=== PATIENT | male | born 1965 | race Caucasian/White ===

== ENCOUNTER 2021-04-27 13:40 | Inpatient (IN) | payer OTHER ==
[~2021-04-27] VITALS: Ht 180.3 cm; Wt 86.2 kg
--- NOTE | ~2021-04-27 | PROC ---
[address] [address] PROCEDURE REPORT Name: KATYA MORIN Room: [address] IN M.R.#: [id number] Admission: 04/27/21 Attend Phys: Jayy Ding Discharge: Date of : 67 Report #: [id number] THIS REPORT FOR: cc: Yehuda Culp MD, Matthew D MD [facility],Medical Records Staff ~ For GI report, please see the Provation report in Perceptive 7 content. By: 0655Medical Records Staff [facility] /BRITTNY
--- NOTE | ~2021-04-27 | CON ---
[address] [address] CONSULTATION Name: KATYA MORIN Room: [address] IN M.R.#: [id number] Admission: 04/27/21 Attend Phys: Jayy Ding Discharge: Date of : 67 Report #: [id number] THIS REPORT FOR: cc: Yehuda Culp MD, Matthew D MD Namin, Farid M. MD ~ cc: Yehuda Culp DATE OF CONSULTATION: 04/28/2021 Please note at the time of this dictation, the patient was seen and physically examined by myself. REASON FOR CONSULTATION: Abdominal pain, nausea and vomiting for 3 weeks along with melanotic stool. HISTORY OF PRESENT ILLNESS: This is a 55-year-old male who presented to the Emergency Room with ongoing abdominal pain, which has progressively gotten worse including nausea and vomiting for the last 3 weeks. He states he has noted black stools about 3 weeks ago and they seem to have got a little bit better and then progressively got worse again. He also has some issues with diffuse burning and every time he has any oral intake, he cannot keep anything down and he vomits things up. The patient does have a history of ulcers in the past. He did undergo an EGD back in 2012 in which, he was noted to have gastric and duodenal ulcers at that time. The patient tells me he had a colonoscopy at that time, but he did not. In looking at the dictation note, he had had a previous colonoscopy 4 years prior and all that was noted was anal fissures. The patient denies taking any NSAIDs at this time or any other nonsteroidal or Excedrin or aspirin on a daily basis. ALLERGIES: PENICILLIN AND LATEX. MEDICATIONS FROM HOME: Include Carafate, metoprolol, Protonix and Lenore. PAST MEDICAL HISTORY: History of gastric and duodenal ulcers, seizure disorder, history of stents in the past, history of pericarditis and hernia. PAST SURGICAL HISTORY: Back surgery, umbilical hernia, tonsillectomy, shoulder reconstruction, appendectomy. He has had pericarditis x 2 along with stent placement. FAMILY HISTORY: Negative for any GI or female cancers. SOCIAL HISTORY: Denies any alcohol, tobacco [place] [address] CONSULTATION Name: KATYA MORIN Room: [address]#: [id number] Admission: 04/27/21 Attend Phys: Jayy Ding Discharge: Date of : 67 Report #: [id number] REVIEW OF SYSTEMS: Twelve-point review of systems is essentially negative except what is mentioned in the HPI. PHYSICAL EXAMINATION: VITAL SIGNS: Temperature 36.6, pulse 97, respirations 14, blood pressure 154/66. HEART: Regular rate and rhythm. LUNGS: Diminished, but clear. ABDOMEN: Soft. Positive bowel sounds in all 4 quadrants with some tenderness noted in the upper quadrants. LABORATORY DATA: Hemoglobin back in 2012 was as high as 14.3, he is currently 8.7. White count is 8.8, platelets are 682. ESR is 102. CRP is 58.3. B12 of 1199. Iron 47, sat is 11. His GFR is 88. CT shows bilateral nonobstructing renal stones. Distal esophagus and stomach were normal. Sigmoid diverticulosis, multiple clustered slightly more prominent retroperitoneal lymph nodes with the right just periaortic nodes and aortocaval lymph nodes measuring up to 11-12 mm in the short axis otherwise, negative. IMPRESSION: 1. Melanotic stool past 3 weeks. 2. Abdominal pain. 3. Acute anemia. 4. Abnormal CT. PLAN: 1. EGD today with Dr. Tuttle. 2. Continuous Protonix drip. 3. Further recommendations to be made after the procedure has been performed. Thank you for allowing us to participate in this patient's care. Please do not hesitate to call with any questions in regard to this consult. By: 1122 [id number] Tuttle MD /oskar
[~2021-04-27 13:40] MED LIST: ADULT LOW DOSE81 MG; CARAFATE 1 GM TA1 G1 PO; DEPAKOTE ER500 MG PO; HYDROCHLOROTH12.5 MG; HYDROCODONE-AP1 EAC6 PO; LASIX 40 MG TAB40 M1 PO; LOPRESSOR25 PO; NEURONTIN 300300 M1; NIASPAN ER 101000 M1; NICOTINE TRANSD14 M1 TD; NOHOMEMEDICATIONS; POTASSIUM20 PO; PROTONIX40 M2 PO; TOPROL XL50 MG; ZOCOR 20 MG TAB20 M1
[2021-04-27 13:46] VITALS: BP 176/78
[2021-04-27 14:40] LABS: ABSOLUTE EOSINOPHILS 0.1 thou/uL (0.0-0.7); ABSOLUTE LYMPHOCYTES 1.2 thou/uL (0.8-5.3); ABSOLUTE MONOCYTES 0.7 thou/uL (0.0-1.2); ABSOLUTE NEUTROPHILS 6.7 thou/uL (1.6-8.1); BASOPHILS 0.3 %; EOSINOPHILS 0.6 %; HEMATOCRIT 27.4 % (42.0-52.0); HEMOGLOBIN 8.7 gm/dL (14.0-18.0); LYMPHOCYTES 14.1 %; MCH 31.4 pg (26.0-34.0); MCHC 31.6 g/dL (28.0-37.0); MCV 99.3 fL (80.0-100.0); MONOCYTES 8.3 %; MPV 6.5 fl. (7.2-11.1); NUCLEATED RBCS 0 /100WBC; PLATELET COUNT* 685 thou/uL (150-400); POLYS 76.7 %; RBC 2.76 mil/uL (4.50-6.00); WBC 8.8 thou/uL (4.0-11.0)
[2021-04-27 14:52] LABS: CALCIUM 8.4 mg/dL (8.5-10.1); CREATININE 0.9 mg/dL (0.6-1.3)
[2021-04-27 14:56] LABS: ALBUMIN 3.2 g/dL (3.4-5.0); TOTAL BILIRUBIN 0.2 mg/dL (<0.1-1.0); TOTAL PROTEIN 7.1 g/dL (6.4-8.2)
--- NOTE | 2021-04-27 15:33 | EKG ---
[place] [address] ELECTROCARDIOGRAM REPORT Name: KATYA MORIN Room: [facility]#: [id number] Admission: 04/27/21 Attend Phys: Discharge: Date of : 67 Date of Service: 04/27/21 1506 Report #: [id number] THIS REPORT FOR: //name// [facility] ED Test Date: 2021-04-27 Test Time: 15:06:04 Pat Name: KATYA MORIN Department: Room: Gender: Lab Manager: GANESH : 1965 Requested By: Travis Fonseca Order Number: [id number] MD: Romeo Becker Measurements Intervals [place] Rate: 79 P: 47 WV: 163 QRS: -3 QRSD: 97 T: 29 QT: 404 QTc: 464 Interpretive Statements Sinus rhythm RSR' in V1 or V2, right VCD or RVH Compared to ECG 01/21/2013 13:29:05 no change Electronically Signed On 04-27-2021 15:32:45 [facility] SOLUTION ARCHITECT by Romeo Becker [email or web address] <ELECTRONICALLY SIGNED> By: Romeo Becker MD, FAC 04/27/21 1532 1506 1506 Romeo Becker MD, [facility] /EPI
[2021-04-27 17:34] LABS: % SATURATION 11 % (20-39); IRON 47 ug/dL (50-175)
[2021-04-27 19:20] VITALS: BP 113/51
[2021-04-27 21:47] LABS: URINE BILIRUBIN NEGATIVE (Negative); URINE BLOOD NEGATIVE (Negative); URINE CLARITY CLEAR; URINE COLOR YELLOW; URINE GLUCOSE-RANDOM NEGATIVE (Negative); URINE KETONES NEGATIVE (Negative); URINE LEUKOCYTES NEGATIVE (Negative); URINE NITRITE NEGATIVE (Negative); URINE PROTEIN NEGATIVE (Negative); URINE UROBILINOGEN 0.2 E.U./dl (0.2-1.0)
[2021-04-27 23:20] VITALS: BP 148/62
[2021-04-28] VITALS (7 sets, daily range): BP systolic 149–179; BP diastolic 52–98
--- NOTE | 2021-04-28 10:53 | NUR ---
REPORT TO JS CARVALHO. ASSUMES CARE.
[2021-04-28 13:17] LABS: HEMATOCRIT 26.7 % (42.0-52.0); HEMOGLOBIN 8.6 gm/dL (14.0-18.0); MCHC 32.3 g/dL (28.0-37.0); MCV 99.2 fL (80.0-100.0); MPV 6.4 fl. (7.2-11.1); RBC 2.69 mil/uL (4.50-6.00); RDW-CV 14.5 % (10.5-14.5); WBC 10.1 thou/uL (4.0-11.0)
[2021-04-28 13:57] LABS: ALBUMIN 3.1 g/dL (3.4-5.0); CALCIUM 8.4 mg/dL (8.5-10.1); CREATININE 0.8 mg/dL (0.6-1.3); POTASSIUM 4.4 mmol/L (3.5-5.1); TOTAL BILIRUBIN 0.3 mg/dL (<0.1-1.0); TOTAL PROTEIN 7.3 g/dL (6.4-8.2)
[2021-04-28] MEDS ORDERED: KEPPRA XR500 MG PO (15:57)
[2021-04-28] MEDS ORDERED: CARVEDILOL25 MG PO (15:58)
[2021-04-28] MEDS ORDERED: ASPIRIN EC81 M1 PO (15:58)
[2021-04-28] MEDS ORDERED: PEPCID40 MG PO (15:59)
[2021-04-28] MEDS ORDERED: FLEXERIL PO (16:00)
[2021-04-28] MEDS ORDERED: NEURONTIN100 MG PO (16:00)
[2021-04-28] MEDS ORDERED: CRESTOR10 MG PO (16:01)
[2021-04-28] MEDS ORDERED: TRIGLIDE160 MG PO (16:01)
[2021-04-28] MEDS ORDERED: NORVASC10 MG PO (16:02)
[2021-04-28] MEDS ORDERED: LOVAZA1000 MG PO (16:02)
[2021-04-28] MEDS ORDERED: HYZAAR 100-12.1 EACH PO (16:03)
[2021-04-28] MEDS ORDERED: FISH OIL 1,001000 M3 PO (16:05)
[2021-04-28] MEDS ORDERED: FLAX SEED OIL1 EACH PO (16:06)
[2021-04-28] MEDS ORDERED: VITAMIN B-121000 MC2 SUBLING ×2 (16:07→16:08)
[2021-04-28] MEDS ORDERED: COENZYME Q-1030 MG PO (16:07)
[2021-04-28] MEDS ORDERED: VITAMIN D3125 MC1 PO (16:09)
[2021-04-28] MEDS ORDERED: COLLAGEN PLUS1 EACH PO (16:10)
--- NOTE | 2021-04-28 18:44 | NUR ---
PT ARRIVED TO UNIT VIA BED AT 1723- REPORT RECIEVED AT BED SIDE PER JAYSON RN- PT A&O X4- CONT OF BOWEL AND BLADDER- UP AD-CONNOR IN ROOM, STEADY GAIT NOTED- RIOR ASSESSMENT REVIEWED AND THIS NURSE AGREES- PT DENIES PAIN AT TIME- EGDN COMPLETED THIS SHIFT WITH RESULTS NOTED IN [facility] [employer]- HEMO/ONCOLOGY CONSULT CALLED ORDERED UPON ARRIVING TO THIS UNIT- IV NOTED TO RIGHT AC INTACT, IVF INFUSSING PRESCIBED- BP NOTED TO BE ELEVATED AT 172/72, JAYSON REPORS TO HAVE NOTIFIED TO REVIEW UPDAED HOME LIST FOR MEDS TO BE STARTED AFTER BEING RECONCILED- NORVASC GIVEN PRESCRIBED- CALL LIGHT AND PERSONAL BELONGINGS WITH IN REACH- ALL NEEDS MET AT THIS TIME
[2021-04-29 02:16] VITALS: BP 150/62
[2021-04-29 06:25] VITALS: BP 122/65
[2021-04-29 08:00] VITALS: BP 151/52
--- NOTE | 2021-04-29 08:37 | NUR ---
PT IS ABLE TO COMMUNICATE HIS NEEDS TO STAFF EFFECTIVELY. CURRENT PAIN MEDICATION REGIMEN HAS BEEN ADEQUATE FOR CONTROLLING HIS PAIN UP TO 0700 THIS MORNING. GI AND HEME/ONC FOLLOWING.
[2021-04-29 12:00] VITALS: BP 151/68
--- NOTE | 2021-04-29 12:53 | NUR ---
pt admitted for GI Bleed, Anemia. Pt lives at home with and children. Pt is independent with care. pt has no DMEs. Pt has past hx with hh, pt doesnt recall since so long ago. pt denies hx with snf. POC is to continously advance pt's diet slowly. there are no anticipate cm d/c needs at this time.
[2021-04-29 16:00] VITALS: BP 151/63
[2021-04-29 20:00] VITALS: BP 164/66
[2021-04-30] VITALS: BP 153/58
[2021-04-30 04:00] VITALS: BP 148/57
[2021-04-30 04:34] LABS: HEMATOCRIT 26.9 % (42.0-52.0); HEMOGLOBIN 8.7 gm/dL (14.0-18.0); MCH 32.2 pg (26.0-34.0); MCHC 32.5 g/dL (28.0-37.0); MCV 99.1 fL (80.0-100.0); MPV 6.6 fl. (7.2-11.1); RBC 2.72 mil/uL (4.50-6.00); RDW-CV 14.8 % (10.5-14.5); WBC 8.2 thou/uL (4.0-11.0)
[2021-04-30 05:01] LABS: ALBUMIN 3.1 g/dL (3.4-5.0); CALCIUM 8.7 mg/dL (8.5-10.1); CREATININE 0.7 mg/dL (0.6-1.3); POTASSIUM 3.8 mmol/L (3.5-5.1); TOTAL BILIRUBIN 0.3 mg/dL (<0.1-1.0); TOTAL PROTEIN 7.5 g/dL (6.4-8.2)
--- NOTE | 2021-04-30 05:15 | NUR ---
AWAKE ALL NIGHT WITH ABD PAIN. SITTING ON EDGE OF BED ROCKING, AMBULATED IN HALLWAY AND ATTEMPTED TO WATCH TV. IV AND PO PAIN MED GIVEN WITHOUT EFFECT. TELEMETRY ON SHOWING SR.
[2021-04-30 08:00] VITALS: BP 172/67
[2021-04-30] MEDS ORDERED: NEXIUM40 MG PO (10:56)
[2021-04-30] MEDS ORDERED: CARAFATE 1 GM TA1 G1 PO (10:56)
[2021-04-30 12:08] VITALS: BP 141/63
[2021-04-30 13:00] VITALS: BP 141/63
--- NOTE | 2021-04-30 13:32 | NUR ---
ASSUMED PT CARE AT 0730, PT AOX4, C/O ABD PAIN TREATED W/ PRN PAIN MEDS. DC ORDERS RECEIVED. IVS AND PUNCH MOLDER REMOVED. PT DC'D BY WC W/ NURSING STAFF AND ALL PAPERWORK AND PERSONAL BELONGINGS TO 'S VEHICLE AT APPROX 1330
[2021-04-30 13:37] VITALS: BP 141/63
--- NOTE | 2021-05-03 16:06 | PATH ---
[place] [address] PATHOLOGY RPT PROCEDURE Name: OCTAVIO JERONIMO Room: [address] IN .R#: [id number] Admission: 04/27/21 Date of : 67 Discharge: 04/30/21 Report #: [id number] Path Case #: [id number] [facility] Accession Number: [id number] . 01 Material submitted: . PART A: gastrointestinal site - GASTRIC BIOPSY FOR GASTRITIS PART B: esophagus - DISTAL ESOPHAGUS RULE OUT DYSPLASIA. Modifiers: distal . 01 Clinical history: . EGD IN OR . 02 Diagnosis: A. Stomach "gastritis", biopsy: - Gastric antral and oxyntic mucosa with features of reactive gastropathy. - Negative for active inflammation, intestinal metaplasia, dysplasia, and malignancy. - Negative for Helicobacter pylori. . B. Esophagus "distal", biopsy: - Invasive adenocarcinoma, with focal signet ring cell features. . The results are conveyed to Dr. Francia Navarrete at approximately 12:00 on 05/03/2021. LBQ 05/03/2021 1601 Local . 02 Comment: The case is seen in co-review, with consensus, by Dr. Tho Villar on 05/03/2021. (MLK/db; 05/03/2021) . 02 Electronically signed: . Naida Pryor MD, Pathologist NPI- [id number] . 01 Gross description: . A. The specimen is received in formalin, labeled "Octavio Jeronimo, gastric biopsy for gastritis". Received are 2 snyder-sung soft tissue fragments, ranging in size from 0.3-0.5 cm, in greatest dimension. The specimen is entirely submitted in cassette A1. . B. The specimen is received in formalin, labeled "Octavio Jeronimo, distal esophagus R/O dysplasia". Received are 2 fragments of snyder-white tissue, measuring 0.3 and 0.7 centimeters: Greatest dimension. The specimen is entirely submitted cassette B1. (J; 04/29/2021) J/[facility] 04/29/2021 1533 Local . 02 [place] [address] PATHOLOGY RPT PROCEDURE Name: OCTAVIO JERONIMO Room: [address] IN M.R.#: [id number] Admission: 04/27/21 Date of : 67 Discharge: 04/30/21 Report #: [id number] Path Case #: [id number] Microscopic: . Immunohistochemical stain results (properly controlled) Helicobacter pylori (A1) - Negative for organisms . AE1/AE3 (B1) - Highlights atypical glandular cells and single atypical cells . Histochemical stain results (properly controlled) Mucicarmine (B1) - Highlights intracytoplasmic mucin within atypical cells . 02 Pathologist provided ICD-10: C15.5, K92.2, D64.9 . 02 CPT . 287540, 206788, X30313, D96775, [id number] Specimen Comment: A courtesy copy of this report has been sent to [phone] Specimen Comment: [phone], Specimen Comment: Report sent to , DR TRACY / DR NAVARRETE Performed at: 01 [facility] [address] [id number] MD Dedrick Serna MD Phone: [phone] Performed at: 02 [facility] [address] [id number] MD Tho Villar MD Phone: [phone]
== END 2021-04-30 13:30 | disposition home or self-care (01) | DRG 378 ==
LOC: M.ERS 13:40 → M.2W 15:30 → M.TBA-ER 15:30 → M.2W 04-28 17:48
PROVIDERS: Nurse Practitioner Adult Health; Physician Assistant; ADMIT Internal Medicine; ATTEND Internal Medicine
PROC: 0DC38ZZ Extirpation of Matter from Lower Esophagus, Via Natural or Artificial Opening Endoscopic (ICD-10-PCS; principal; 2021-04-28)
PROC: 0D738ZZ Dilation of Lower Esophagus, Via Natural or Artificial Opening Endoscopic (ICD-10-PCS; principal; 2021-04-28)
PROC: 0DB68ZX Excision of Stomach, Via Natural or Artificial Opening Endoscopic, Diagnostic (ICD-10-PCS; principal; 2021-04-28)
PROC: 0DB38ZX Excision of Lower Esophagus, Via Natural or Artificial Opening Endoscopic, Diagnostic (ICD-10-PCS; principal; 2021-04-28)
DX: K29.71 Gastritis, unspecified, with bleeding (principal); I38 Endocarditis, valve unspecified; G45.9 Transient cerebral ischemic attack, unspecified; E44.0 Moderate protein-calorie malnutrition; G40.909 Epilepsy, unspecified, not intractable, without status epilepticus; Z20.822 Contact with and (suspected) exposure to COVID-19; D64.9 Anemia, unspecified; R59.9 Enlarged lymph nodes, unspecified; I10 Essential (primary) hypertension; I70.90 Unspecified atherosclerosis; Z68.26 Body mass index [BMI] 26.0-26.9, adult; Z90.49 Acquired absence of other specified parts of digestive tract; Z88.0 Allergy status to penicillin; Z91.040 Latex allergy status; Z87.891 Personal history of nicotine dependence